=== PATIENT | male | born 1960 | race Caucasian/White ===

== ENCOUNTER 2020-11-08 05:15 | Emergency (ER) | payer BC, SELFPAY ==
--- NOTE | ~2020-11-08 | CT_ITS ---
EXAMINATION: CT abdomen pelvis w con DATE: 11/08/2020 06:01 INDICATION: Right upper quadrant abdominal pain. TECHNIQUE: Computed tomography (CT) of the abdomen and pelvis was performed with 100 mL Omnipaque 350 intravenous contrast. Automated exposure control and iterative reconstruction technique were employe d. The dose-length product was 319.05 mGy-cm. COMPARISON: CT abdomen and pelvis 04/05/2012 FINDINGS: The visualized portions of the lung bases demonstrate mild atelectasis. No pleural effusion . The heart size is normal. No pericardial effusion. The liver, gallbladder, spleen, pancreas, and le ft adrenal gland are normal. There is an 11 mm mass in right adrenal gland measuring soft tissue atte nuation with increase in size from 04/05/2012. The kidneys are normal. There is chronic diffuse bladder wall thickening, likely secondary to chronic outlet obstruction from the mildly enlarged prostate. S tool distends the rectum. The appendix is normal. There are no pathologically enlarged lymph nodes. T here is no free intraperitoneal fluid. There is a left inguinal hernia containing fat. There is mild thoracolumbar spondylosis. IMPRESSION: 1. 11 mm right adrenal mass. In the absence of known malignancy, this finding is likely an adenoma. 2. Left inguinal hernia containing fat. Reviewed, dictated and finalized at location B. EQUIPMENT INSPECTOR IMPRESSION: 1. 11 mm right adrenal mass. In the absence of known malignancy, this finding i s likely an adenoma. 2. Left inguinal hernia containing fat.
--- NOTE | 2020-11-08 05:19 | ED.ABDPAIN ---
HPI - Abdominal Pain General Chief Complaint: Abdominal Pain Stated Complaint: rlq pain and dizziness Time Seen by Provider: 11/08/20 05:17 History of Present Illness HPI narrative: Right flank pain since last night. Constant. Worse with movement. Sharp in quality. He has not tried anything to relieve that pain. This is a new problem. No nausea, vomiting, diarrhea, constipation, fever, dysuria, hematuria. Related Data Home Medications Medication Instructions Recorded Confirmed ezetimibe 10 mg tablet 10 mg PO DAILY 11/01/19 Allergies Allergy/AdvReac Type Severity Reaction Status Date / Time No Known Allergies Allergy Verified 11/08/20 05:23 Review of Systems Review of Systems: All systems reviewed & are unremarkable except as noted in HPI and below Constitutional: Constitutional: Denies chills and Denies fever(s) Cardiovascular: Cardiovascular: Denies chest pain Respiratory: Respiratory: Denies dyspnea Gastrointestinal: Gastrointestinal: Reports abdominal pain, Denies constipation, Denies diarrhea, Denies nausea and Denies vomiting Genitourinary: Genitourinary: Denies hematuria and Denies dysuria Neurologic: Denies dizziness and Denies weakness [facility] Past Medical History Medical History (Updated 11/08/20 @ 06:25 by Richard Wright MD) Colon cancer screening Social History Social History Smoking status: Never smoker Alcohol intake: never Exam Const: General: healthy appearing, no acute distress and alert Orientation/consciousness: patient oriented x3 HENMT: Head: normal to inspection Neck: Neck: normal visual inspection and no lymphadenopathy Chest: Chest palpation & inspection: no tenderness Resp: Effort & Inspection: normal respiratory effort Auscultation: clear to auscultation bilaterally, no rales, no rhonchi and no wheezes Cardio: Jugular venous distension: no JVD Rate: regular rate Rhythm: regular rhythm Heart sounds: no murmurs GI: Inspection: non-distended GI Palp: Yes Soft to palpation and Yes Tenderness to palpation present (GI) (RUQ/flank) Skin: General skin exam: normal color Neuro: General: patient oriented x3, moves all extremities, no focal motor deficits and CN's II-XI intact bilaterally Speech: normal speech Extrem: General: no edema Psych: Appearance: well kempt Affect: normal affect Course Vital Signs Vital signs: Vital Signs Temperature 36.6 C 11/08/20 05:20 Pulse Rate 57 L 11/08/20 05:20 Respiratory Rate 16 11/08/20 05:20 Blood Pressure 100/47 L 11/08/20 05:20 Pulse Oximetry 100 11/08/20 05:20 Temperature 36.6 C 11/08/20 05:20 Pulse Rate 57 L 11/08/20 05:20 Respiratory Rate 16 11/08/20 05:20 Blood Pressure 100/47 L 11/08/20 05:20 Pulse Oximetry 100 11/08/20 05:20 MDM - Abdominal Pain MDM Narrative Medical decision making narrative: Gall bladder distension without stone on CT. Labs normal. Differential Diagnosis Differential diagnosis: Likely acute appendicitis, calculus of kidney and other (cholecystitis) Medical Records Attestation: I reviewed the patient's medical records. Lab Data Attestation: I reviewed the patient's lab results. Result diagrams: 11/08/20 05:44 11/08/20 05:49 Labs: Lab Results 11/08/20 11/08/20 11/08/20 Range/Units 05:44 05:44 05:44 WBC 9.4 (4.5-10.0) K/mm3 RBC 4.93 (4.6-6.20) M/mm3 Hgb 14.8 (14.0-18.0) g/dL Hct 43.4 (42.0-52.0) % MCV 88.0 (80-100) fl MCH 30.0 (26-34) pg MCHC 34.1 (32-36) g/dl RDW 12.8 (11.5-14.5) % Plt Count 251 (150-375) k/mm3 MPV 9.1 (7.4-10.4) fl Immature Gran % (Auto) 0.4 (0-0.5) % Neut % (Auto) 64.5 (45.5-73.1) % Lymph % (Auto) 26.0 (18.3-44.2) % Miner % (Auto) 8.1 (2.6-8.5) % Eos % (Auto) 0.5 (0-4.4) % Baso % (Auto) 0.5 (0.2-1.2) % Lymph # (Auto) 2.45 (0.9-3.2) K/mm3 Miner # (Aut
[2020-11-08 05:20] VITALS: BP 100/47; PULSE 57; RESP 16; TEMP 36.6; O2SAT 100
[2020-11-08 05:54] LABS: Estimated CRCL calculation 55 ml/min; Estimated Glomerular Filt Rate > 60
[2020-11-08 05:57] LABS: Basophils Absolute Auto 0.1 K/mm3 (0.0-0.1); Basophils Percent Auto 0.5 % (0.2-1.2); Eosinophils Absolute Auto 0.1 K/mm3 (0-0.3); Eosinophils Percent Auto 0.5 % (0-4.4); Hematocrit 43.4 % (42.0-52.0); Hemoglobin 14.8 g/dL (14.0-18.0); Immature Granulocyte Absolute 0.04 K/mm3 (0.00-0.031); Immature Granulocyte Percent A 0.4 % (0-0.5); Lymphocytes Absolute Auto 2.45 K/mm3 (0.9-3.2); Mean Corpuscular HGB Conc 34.1 g/dl (32-36); Mean Platelet Volume 9.1 fl (7.4-10.4); Monocytes Absolute Auto 0.8 K/mm3 (0.1-0.6); Monocytes Percent Auto 8.1 % (2.6-8.5); Neutrophils Absolute Auto 6.1 K/mm3 (1.3-6.7); Neutrophils Percent Auto 64.5 % (45.5-73.1); Platelet Count Result 251 k/mm3 (150-375); Red Blood Count 4.93 M/mm3 (4.6-6.20); Red Cell Distribution Width 12.8 % (11.5-14.5); White Blood Count 9.4 K/mm3 (4.5-10.0)
[2020-11-08 05:58] LABS: Add Urine Microscopic? NO; Appearance Urine Clear (Clear); Bilirubin Urine Negative (Negative); Blood Urine Negative (Negative); Color Urine Yellow (Yellow); Glucose Urine UA Negative (Negative); Ketones Urine Negative (Negative); Leukocyte Esterase Ur Negative LEU/UL (Negative); Nitrate Urine Negative (Negative); Protein Urine Negative (Negative); Specific Grav Ur 1.016 (1.001-1.035); Urobilinogen Urine Negative mg/dL (<2.0)
[2020-11-08 06:09] LABS: Alanine Aminotransferase 13 U/L (4-50); Albumin Level 3.8 g/dL (3.5-5.1); Alkaline Phosphatase 60 U/L (38-126); Anion Gap 6 mmol/L (8-16); Aspartate Amino Transferase 20 U/L (17-59); Bilirubin,Total 0.7 mg/dL (0.2-1.3); Blood Urea Nitrogen 18 mg/dL (9-20); Calcium 9.2 mg/dL (8.4-10.2); Carbon Dioxide 29 mmol/L (22-30); Chloride 103 mmol/L (98-107); Estimated CRCL calculation 60 ml/min; Estimated Glomerular Filt Rate > 60; Glucose 153 mg/dL (75-110); Lipase 57 U/L (23-300); Potassium 3.9 mmol/L (3.4-5.0); Sodium 138 mmol/L (137-145)
== END 2020-11-08 06:49 | disposition home or self-care (01) ==
PROVIDERS: Emergency Provider Emergency Medicine; PCP Emergency Medicine
DX: K80.50 Calculus of bile duct without cholangitis or cholecystitis without obstruction (principal)
CPT/HCPCS: 74177; 80053; 81003; 83690; 85025; 99284; Q9967

== ENCOUNTER → 2023-08-03 15:54 | Outpatient (CLI) | payer BC, SELFPAY ==
--- NOTE | ~2023-08-03 | XR_ITS ---
EXAM: XR shoulder RT min 2V DATE: 08/03/2023 16:32 HISTORY: M25.519 - Pain in unspecified shoulder . COMPARISON: None available. FINDINGS: Normal mineralization. No fracture or dislocation. No lytic or blastic lesion. Mild narrow ing and sclerosis at the glenohumeral joint. No erosion or periosteal change. Soft tissues within nor mal limits. IMPRESSION: Mild glenohumeral osteoarthritis. Reviewed, dictated and finalized at location K.
== END ==
PROVIDERS: PCP Emergency Medicine; Visit Provider Emergency Medicine
DX: M19.011 Primary osteoarthritis, right shoulder (principal)
CPT/HCPCS: 73030